=== PATIENT | female | born 1990 | race Caucasian/White ===

== ENCOUNTER 2016-12-23 11:57 | Emergency (ER) | payer BC, MEDICAID ==
[~2016-12-23] VITALS: Ht 165.1 cm; Wt 103.0 kg
[~2016-12-23 11:57] MED LIST: IRON18TA PO; PREN1TAB49 PO
[2016-12-23] MEDS ORDERED: DEXAMETHASONE 10 MG/ML VIAL IM ONE (13:45)
[2016-12-23] MEDS ORDERED: CEPHALEXIN 500MG CAPSULE PO ONE (13:45)
[2016-12-23 14:43] VITALS: BP 127/77
== END 2016-12-23 15:28 | disposition home or self-care (01) ==
LOC: ER 12:59
DX: J03.90 Acute tonsillitis, unspecified (principal); R03.0 Elevated blood-pressure reading, without diagnosis of hypertension; Z88.0 Allergy status to penicillin
CPT/HCPCS: 81025; 96372; 99283; J1100; Z7610